=== PATIENT | female | born 1950 ===

== ENCOUNTER 2021-10-20 05:40 | Day surgery (SDC) | payer OTHER ==
[~2021-10-20 05:40] MED LIST: COZAAR50 MG PO; LEXAPRO20 MG PO; PLAVIX75 MG PO; PROPRANOLOL HCL60 M1 PO; VYTORIN 10-201 EACH PO
== END 2021-10-20 11:55 | disposition home or self-care (01) ==
LOC: CIR.AMB 05:40
PROVIDERS: ATTEND Colon & Rectal Surgery
DX: K64.8 Other hemorrhoids (principal); Z20.822 Contact with and (suspected) exposure to COVID-19; Z88.6 Allergy status to analgesic agent; I10 Essential (primary) hypertension; F17.210 Nicotine dependence, cigarettes, uncomplicated; Z85.3 Personal history of malignant neoplasm of breast